=== PATIENT | female | born 1945 | race Two or more races ===

== ENCOUNTER → 2024-09-03 | Day surgery (SDC) | payer OTHER | END | disposition home or self-care (01) | LOC: ADM 08-28 13:30 → AMB-ENDOS 06:00 | PROVIDERS: ATTEND Surgery | DX: D12.0 Benign neoplasm of cecum (principal); Z53.09 Procedure and treatment not carried out because of other contraindication; I10 Essential (primary) hypertension ==

== ENCOUNTER 2024-12-06 06:00 | Day surgery (SDC) | payer OTHER ==
[2024-12-06] MEDS ORDERED: MIDAZOLAM HCL 2 MG/2 ML VIAL IV ONE (12:45)
[2024-12-06] MEDS ORDERED: DIPHENHYDRAMINE HCL 50 MG/ML VIAL 1ML IV ONE (12:45)
[2024-12-06] MEDS ORDERED: fentaNYL CITRATE 50 MCG/ML AMPUL IV PUSH ONE (12:45)
== END 2024-12-06 14:25 | disposition home or self-care (01) ==
LOC: AMB-ENDOS 06:00
PROVIDERS: ATTEND Surgery
DX: D12.0 Benign neoplasm of cecum (principal); K63.5 Polyp of colon

== ENCOUNTER 2025-02-27 11:41 | Inpatient (IN) | payer OTHER ==
[~2025-02-27] VITALS: Wt 44.5 kg
[2025-02-27] MEDS ORDERED: NORVASC5 MG PO (13:41)
[2025-02-27] MEDS ORDERED: TAPAZOLE5 MG PO (13:41)
[2025-02-27] MEDS ORDERED: TOPROL XL25 M1 PO (13:41)
[2025-02-27] MEDS ORDERED: COZAAR25 MG PO (13:41)
[2025-03-11] MEDS ORDERED: CEFTRIAXONE SODIUM 2,000 MG VIAL IV ONE (13:30)
[2025-03-11] MEDS ORDERED: METRONIDAZOLE/SODIUM CHLORIDE 500 MG/100 ML PIGGYBACK IV ONE (13:30)
[2025-03-11] MEDS ORDERED: SUGAMMADEX SODIUM 200 MG/2 ML VIAL IV ONE (13:50)
[2025-03-11] MEDS ORDERED: OxyCODONE HCL 5 MG TABLET (ROXICODONE) PO PRN (14:45)
[2025-03-11] MEDS ORDERED: RINGERS SOLUTION,LACTATED 1,000 ML IV SCH (14:45)
[2025-03-11] MEDS ORDERED: ONDANSETRON HCL 2 MG/ML VIAL IV PRN (14:45)
[2025-03-11] MEDS ORDERED: MORPHINE SULFATE 4 MG/ML CARTRIDGE IV PRN (14:45)
[2025-03-11] MEDS ORDERED: DEXTROSE 50 % IN WATER 0.5 G/ML DISP.SYRIN IV PRN (14:45)
[2025-03-11] MEDS ORDERED: ENALAPRILAT DIHYDRATE 1.25 MG/ML VIAL IV PRN (15:00)
[2025-03-11 16:05] LABS: BASO % 0.7 % (0.1-1.2); EOS # 0.03 (0.04-0.54); EOS % 0.2 % (0.7-7.0); LYMPH # 2.81 (1.18-3.74); LYMPH % 22.9 % (19.3-53.1); MEAN PLATELET VOLUME 10.70 fl (9.4-12.4); MONO # 0.58 (0.24-0.82); MONO % 4.7 % (4.7-12.5); NEUT # 8.70 (1.56-6.13); NEUT % 71.0 % (34.0-71.1); RED CELL DISTRIBUTION WIDTH 13.4 % (11.6-14.4)
[2025-03-11 16:33] LABS: BUN CREA RATIO 49.0 (7.0-25.0); CREATININE SERUM 0.45 mg/dL (0.55-1.02); GFR 134.75; GLUCOSE FASTING 110.0 mg/dL (65-100); OSMOLALITY SERUM 293.0 MOSM/KG (275-295)
[2025-03-11] MEDS ORDERED: GABAPENTIN 300 MG CAPSULE PO SCH (17:00)
[2025-03-11 17:39] VITALS: BP 121/62; O2SAT 95
[2025-03-11] MEDS ORDERED: ACETAMINOPHEN 500 MG GEL..CAP PO SCH (20:00)
[2025-03-11] MEDS ORDERED: FAMOTIDINE/PF 20 MG/2 ML VIAL IV PUSH SCH (21:00)
[2025-03-11] MEDS ORDERED: METOPROLOL SUCCINATE 25 MG TAB.SR.24H PO SCH (21:00)
[2025-03-11] MEDS ORDERED: LOSARTAN POTASSIUM 25 MG TABLET PO SCH (21:00)
[2025-03-12 02:57] VITALS: BP 105/63; O2SAT 98
[2025-03-12 07:55] LABS: BASO % 0.1 % (0.1-1.2); EOS # 0.00 (0.04-0.54); EOS % 0.0 % (0.7-7.0); LYMPH # 1.07 (1.18-3.74); LYMPH % 7.5 % (19.3-53.1); MEAN PLATELET VOLUME 10.70 fl (9.4-12.4); MONO # 0.86 (0.24-0.82); MONO % 6.1 % (4.7-12.5); NEUT # 12.17 (1.56-6.13); NEUT % 85.8 % (34.0-71.1); RED CELL DISTRIBUTION WIDTH 13.5 % (11.6-14.4)
[2025-03-12 08:42] LABS: BUN CREA RATIO 32.0 (7.0-25.0); CREATININE SERUM 0.57 mg/dL (0.55-1.02); GFR 102.58; GLUCOSE FASTING 101.0 mg/dL (65-100); OSMOLALITY SERUM 291.0 MOSM/KG (275-295)
[2025-03-12 08:57] VITALS: BP 133/56; O2SAT 99
[2025-03-12] MEDS ORDERED: METHIMAZOLE 10 MG TABLET PO SCH (09:00)
[2025-03-12] MEDS ORDERED: AMLODIPINE BESYLATE 5 MG TABLET PO SCH (09:00)
[2025-03-12 16:00] VITALS: BP 145/68; O2SAT 99
[2025-03-12] MEDS ORDERED: SIMETHICONE 125 MG CAPSULE PO NR (16:30)
[2025-03-12] MEDS ORDERED: ENOXAPARIN SODIUM 40 MG/0.4 ML SYRINGE SUBCUTANEO SCH (17:00)
[2025-03-12] MEDS ORDERED: ROSUVASTATIN CALCIUM 10 MG TABLET PO SCH (17:00)
[2025-03-13 00:30] VITALS: BP 100/66; O2SAT 98
[2025-03-13 06:16] LABS: BASO % 0.3 % (0.1-1.2); EOS # 0.03 (0.04-0.54); EOS % 0.3 % (0.7-7.0); LYMPH # 1.12 (1.18-3.74); LYMPH % 10.3 % (19.3-53.1); MEAN PLATELET VOLUME 10.90 fl (9.4-12.4); MONO # 0.59 (0.24-0.82); MONO % 5.4 % (4.7-12.5); NEUT # 9.03 (1.56-6.13); NEUT % 83.3 % (34.0-71.1); RED CELL DISTRIBUTION WIDTH 13.8 % (11.6-14.4)
[2025-03-13 07:14] LABS: BUN CREA RATIO 27.0 (7.0-25.0); CREATININE SERUM 0.45 mg/dL (0.55-1.02); GFR 134.75; GLUCOSE FASTING 103.0 mg/dL (65-100); OSMOLALITY SERUM 289.0 MOSM/KG (275-295)
[2025-03-13 08:25] VITALS: BP 142/59; O2SAT 100
[2025-03-13] MEDS ORDERED: ENOXAPARIN SODIUM 40 MG/0.4 ML SYRINGE SUBCUTANEO SCH (09:00)
[2025-03-13] MEDS ORDERED: MAGNESIUM SULFATE IN WATER 50 ML IV NR (11:00)
[2025-03-13] MEDS ORDERED: POTASSIUM PHOS,M-BASIC-D-BASIC 3 MM/ML VIAL IV ONE (13:00)
[2025-03-13 16:42] VITALS: BP 152/70; O2SAT 98
[2025-03-13] MEDS ORDERED: VITAMIN B COMPLEX/LYSINE 15 ML BLIST.PACK PO SCH (17:00)
[2025-03-14 00:57] VITALS: BP 127/73; O2SAT 97
[2025-03-14 08:43] VITALS: BP 180/75; O2SAT 98
[2025-03-14] MEDS ORDERED: METHIMAZOLE 5 MG TABLET PO SCH (09:00)
[2025-03-14] MEDS ORDERED: NEURONTIN300 MG PO (12:16)
[2025-03-14] MEDS ORDERED: TYLENOL ARTHRI650 MG PO (12:16)
[2025-03-14] MEDS ORDERED: INTESTINEX680 M1 PO (12:16)
[2025-03-14] MEDS ORDERED: AMINO ACIDS/PROTEIN HYDROLYS 30 ML BLIST.PACK PO SCH (17:00)
== END 2025-03-14 14:35 | disposition home or self-care (01) | DRG 330 ==
LOC: SURH 03-11 08:30 → O/R 03-11 09:00 → SURH 03-11 11:45
PROVIDERS: Internal Medicine Geriatric Medicine; ADMIT Surgery; ATTEND Surgery
PROC: 07BC4ZX Excision of Pelvis Lymphatic, Percutaneous Endoscopic Approach, Diagnostic (ICD-10-PCS; 2025-03-11)
PROC: 0DTF4ZZ Resection of Right Large Intestine, Percutaneous Endoscopic Approach (ICD-10-PCS; principal; 2025-03-11 08:30)
DX: D12.6 Benign neoplasm of colon, unspecified (principal); K80.18 Calculus of gallbladder with other cholecystitis without obstruction; K92.1 Melena

== ENCOUNTER 2025-03-14 17:57 | Inpatient (IN) | payer OTHER ==
[~2025-03-14] VITALS: Ht 152.4 cm; Wt 42.2 kg
[~2025-03-14 17:57] MED LIST: COZAAR25 MG PO; INTESTINEX680 M1 PO; NEURONTIN300 MG PO; NORVASC5 MG PO; TAPAZOLE5 MG PO; TOPROL XL25 M1 PO; TYLENOL ARTHRI650 MG PO
--- NOTE | 2025-03-14 18:44 | NUR ---
PTE ALERTA Y OIRNETADA X3 REFIERE QUE FUE OPEREDA POR EL DR. JING DELACRUZ EL LAY PASADO DE LOS INTESTINO Y FUE ASHLYN DE APARNA HOY. AL LLEGAR A SE CASA DE [place]WK CUENTA QUE TIENE EDEMA EN LOS PIES. SE MIDEN S/V Y SE UBICA.
[2025-03-14 22:05] LABS: BASO % 0.5 % (0.1-1.2); EOS # 0.17 (0.04-0.54); EOS % 1.8 % (0.7-7.0); LYMPH # 1.83 (1.18-3.74); LYMPH % 19.8 % (19.3-53.1); MEAN PLATELET VOLUME 10.50 fl (9.4-12.4); MONO # 0.59 (0.24-0.82); MONO % 6.4 % (4.7-12.5); NEUT # 6.59 (1.56-6.13); NEUT % 71.3 % (34.0-71.1); RED CELL DISTRIBUTION WIDTH 13.6 % (11.6-14.4)
[2025-03-14 22:09] LABS: ERYTHROCYTE SEDIMENTATION RATE 17 mm/hr (0-30)
--- NOTE | 2025-03-14 22:24 | NUR ---
SE ORIENTA PACIENTE ACERCA DE TRATAMIENTO. SE COLECTAN MUESTRAS DE LABORATORIO BAJO MEDIDAS ASEPTICAS. SE UBICA PACIENTE EN VIRGIL ACOMPANADA POR FAMILIAR.
[2025-03-14 22:50] LABS: D DIMER 2.45 MG/L
[2025-03-14 22:53] LABS: ALT/SGPT 29.0 U/L (12-78); AST/SGOT 33.0 U/L (15-37); BILIRUBIN TOTAL 1.41 mg/dL (0.3-1.2); BUN CREA RATIO 23.0 (7.0-25.0); CREATININE SERUM 0.44 mg/dL (0.55-1.02); GFR 138.29; GLOBULINA 3.1 G/DL (2.4-3.5); GLUCOSE FASTING 106.0 mg/dL (65-100); INR 1.01; OSMOLALITY SERUM 290.0 MOSM/KG (275-295)
[2025-03-15 12:13] LABS: BASO % 0.3 % (0.1-1.2); EOS # 0.30 (0.04-0.54); EOS % 3.8 % (0.7-7.0); LYMPH # 1.69 (1.18-3.74); LYMPH % 21.4 % (19.3-53.1); MEAN PLATELET VOLUME 9.80 fl (9.4-12.4); MONO # 0.72 (0.24-0.82); MONO % 9.1 % (4.7-12.5); NEUT # 5.16 (1.56-6.13); NEUT % 65.3 % (34.0-71.1); RED CELL DISTRIBUTION WIDTH 13.5 % (11.6-14.4)
[2025-03-15] MEDS ORDERED: ACETAMINOPHEN 500 MG GEL..CAP PO PRN (16:15)
[2025-03-15 19:13] VITALS: BP 150/74; O2SAT 98
[2025-03-16] VITALS (8 sets, daily range): BP systolic 133; BP diastolic 55–80; O2SAT 94–98
[2025-03-16] MEDS ORDERED: FAMOTIDINE/PF 20 MG in 0.9 % SODIUM CHLORIDE 8 ML IV PUSH SCH (09:00)
[2025-03-16] MEDS ORDERED: CEFTRIAXONE SODIUM 2,000 MG in 0.9 % SODIUM CHLORIDE 100 ML IV SCH (09:00)
[2025-03-16] MEDS ORDERED: LOSARTAN POTASSIUM 25 MG TABLET PO SCH (09:00)
[2025-03-16] MEDS ORDERED: METOPROLOL SUCCINATE 25 MG TAB.SR.24H PO SCH (09:00)
[2025-03-16] MEDS ORDERED: AMLODIPINE BESYLATE 5 MG TABLET PO SCH (09:00)
[2025-03-16] MEDS ORDERED: METHIMAZOLE 10 MG TABLET PO SCH (09:00)
[2025-03-17 01:00] VITALS: BP 147/66; O2SAT 97
[2025-03-17 01:09] VITALS: O2SAT 95
[2025-03-17 06:24] VITALS: O2SAT 95
[2025-03-17 08:00] VITALS: BP 148/80; O2SAT 96
[2025-03-17] MEDS ORDERED: METHIMAZOLE 5 MG TABLET PO SCH (09:00)
[2025-03-17 10:14] VITALS: O2SAT 95
[2025-03-17 13:13] VITALS: O2SAT 98
[2025-03-17] MEDS ORDERED: TAPAZOLE5 MG PO (13:15)
[2025-03-17] MEDS ORDERED: INTESTINEX680 M1 PO (13:15)
[2025-03-17] MEDS ORDERED: NORVASC5 MG PO (13:15)
[2025-03-17] MEDS ORDERED: COZAAR25 MG PO (13:15)
[2025-03-17] MEDS ORDERED: TOPROL XL25 M1 PO (13:15)
== END 2025-03-17 15:51 | disposition home or self-care (01) | DRG 920 ==
LOC: ER 17:58 → SURG 03-15 17:12
PROVIDERS: General Practice; Internal Medicine; ADMIT Internal Medicine Geriatric Medicine; ATTEND Internal Medicine Geriatric Medicine
PROC: BW21ZZZ Computerized Tomography (CT Scan) of Abdomen and Pelvis (ICD-10-PCS; principal; 2025-03-14)
PROC: B54DZZZ Ultrasonography of Bilateral Lower Extremity Veins (ICD-10-PCS; 2025-03-14)
PROC: B44HZZZ Ultrasonography of Bilateral Lower Extremity Arteries (ICD-10-PCS; 2025-03-14)
PROC: B246ZZZ Ultrasonography of Right and Left Heart (ICD-10-PCS; 2025-03-15)
PROC: 4A12X4Z Monitoring of Cardiac Electrical Activity, External Approach (ICD-10-PCS; 2025-03-16)
DX: T81.89XA Other complications of procedures, not elsewhere classified, initial encounter (principal); I82.4Z3 Acute embolism and thrombosis of unspecified deep veins of distal lower extremity, bilateral; K62.5 Hemorrhage of anus and rectum; R60.0 Localized edema; E03.9 Hypothyroidism, unspecified; I11.9 Hypertensive heart disease without heart failure; D12.0 Benign neoplasm of cecum